=== PATIENT | male | born 1975 | race Caucasian/White ===

== ENCOUNTER 2020-12-17 20:53 | Emergency (ER) | payer OTHER ==
[~2020-12-17] VITALS: Ht 175.3 cm; Wt 95.3 kg
[2020-12-17 21:18] VITALS: BP_SYST 165
--- NOTE | 2020-12-17 21:18 | NUR ---
Patient triaged and placed in waiting room. VSS and patient appears in no acute distress at this time. Accompanied by self , awaiting available bed, and MD notified of need for MSE.
--- NOTE | 2020-12-17 21:22 | NUR ---
Pt brought by self , A&Ox4, pt presents to ER with rash on hands and arms, pt states he had an allergic reaction one week ago and was given methylprednisolone and hydroxyzine, pt started benedryl toda, pt speaking in full sentences, skin pink and warm, cap refill <3.
--- NOTE | 2020-12-17 23:05 | NUR ---
DR. TORRES TO TENT OR EVALUATION
[2020-12-18 00:42] LABS: BASOPHILS # (AUTO) 0.1 K/uL (0.0-0.2); BASOPHILS % (AUTO) 0.7 % (0.0-2.0); EOSINOPHILS # (AUTO) 0.3 K/uL (0.0-0.4); EOSINOPHILS % (AUTO) 3.4 % (0.0-4.0); HEMOGLOBIN 14.8 g/dL (14.0-18.0); LYMPHOCYTES # (AUTO) 2.5 K/uL (1.0-5.5); LYMPHOCYTES % (AUTO) 32.3 % (20.5-51.5); MEAN CORPUSCULAR HEMOGLOBIN 30 pg (27-31); MEAN CORPUSCULAR HGB CONC 35 % (32-36); MEAN CORPUSCULAR VOLUME 87 fL (79.0-98.0); MONOCYTES # (AUTO) 0.8 K/uL (0.0-1.0); MONOCYTES % (AUTO) 10.6 % (1.7-9.3); NEUTROPHILS # (AUTO) 4.1 K/uL (1.8-7.7); PLATELET COUNT (AUTO) 267 K/uL (130-430); RED BLOOD CELL COUNT(AUTO) 4.92 MIL/uL (4.2-6.2); RED CELL DISTRIBUTION WIDTH 12.6 % (9.0-15.0); WHITE BLOOD COUNT (AUTO) 7.7 K/uL (4.8-10.8)
[2020-12-18 00:47] LABS: CALCIUM 8.3 mg/dL (8.4-11.0); POTASSIUM 3.9 mmol/L (3.5-5.1)
[2020-12-18 00:48] LABS: ALBUMIN 3.7 g/dL (3.4-4.8); CREATININE 1.06 mg/dL (0.55-1.30); TOTAL BILIRUBIN 0.3 mg/dL (0.0-1.0)
[2020-12-18 03:38] VITALS: BP_SYST 145
--- NOTE | 2020-12-18 03:38 | NUR ---
Patient given written and verbal discharge instructions and verbalizes understanding. ER MD TORRES discussed with patient the results and treatment provided. Patient in stable condition. ID arm band removed. Rx of TRIAMCINOLONE ACETONIDE TOPICAL OINTMENT given. Patient educated on pain management and to follow up with PMD. Pain Scale 0/10. Opportunity for questions provided and answered. Medication side effect fact sheet provided.
== END 2020-12-18 03:38 | disposition home or self-care (01) ==
LOC: SED 20:53
DX: R21 Rash and other nonspecific skin eruption (principal)
CPT/HCPCS: 36415; 80053; 85025; 99283